=== PATIENT | female | born 1965 | race Caucasian/White ===

== ENCOUNTER 2021-04-03 10:33 | Outpatient (REF) | payer SELFPAY ==
[2021-04-03 13:29] LABS: Binax Now Covid-19 Ag Negative (Negative)
[2021-04-03 13:30] LABS: Binax Internal Control QC Valid
== END 2021-04-03 10:34 | disposition home or self-care (01) ==
LOC: HO.LAB 10:33
PROVIDERS: Visit Provider Internal Medicine
DX: Z20.822 Contact with and (suspected) exposure to COVID-19 (principal)
CPT/HCPCS: 36415; C9803